=== PATIENT | male | born 1950 | race Caucasian/White ===

== ENCOUNTER 2020-09-22 13:44 | Inpatient (IN) | payer MEDICARE ==
[~2020-09-22] VITALS: Ht 167.6 cm; Wt 99.8 kg
[2020-09-22] MEDS ORDERED: metoprolol (13:47)
[2020-09-22] MEDS ORDERED: metformin (13:47)
[2020-09-22] MEDS ORDERED: DEXAMETHASONE 4MG/ML 1ML VIAL IV ONE (14:15)
[2020-09-22] MEDS ORDERED: PIPERACILLIN/TAZ 3.375G PREMIX 50 ML IV ONE (14:15)
[2020-09-22] MEDS ORDERED: VANCOMYCIN 1 G PREMIX 200 ML IV ONE (14:15)
[2020-09-22] MEDS ORDERED: DILTIAZEM HCL 5MG/ML 5ML VIAL IV ONE (14:45)
[2020-09-22] MEDS ORDERED: SODIUM CHLORIDE 0.9% 500 ML IV ONE (15:00)
[2020-09-22 15:26] LABS: BASOPHILS % 0.5 % (0.0-2.0); EOSINOPHILS % 0.3 % (0.0-5.0); HEMATOCRIT. 53.5 % (42.0-52.0); HEMOGLOBIN. 17.6 g/dL (14.0-18.0); LYMPHOCYTES % 15.5 % (20.0-50.0); MEAN CORPUSCULAR HEMOGLOBIN 29.8 pg (28.0-32.0); MEAN CORPUSCULAR VOLUME 90.3 fL (80.0-94.0); MEAN PLATELET VOLUME 9.1 fl (7.4-10.4); MONOCYTES % 4.9 % (2.0-8.0); NEUTROPHILS % 78.8 % (40.0-76.0); PLATELET 182 x1000/uL (130-400); RED BLOOD CELL COUNT 5.92 mill/uL (4.7-6.1); RED CELL DISTRIBUTION WIDTH 13.2 % (11.6-14.6)
[2020-09-22 15:31] LABS: CHLORIDE 100 mEq/L (98-107)
[2020-09-22 15:34] LABS: INR 1.2
[2020-09-22] MEDS ORDERED: NOREPINEPHRINE 8MG/250ML PMX 250 ML IV STA (15:44)
[2020-09-22] MEDS ORDERED: PROPOFOL 10MG/ML 100ML 100 ML IV ONE (15:45)
[2020-09-22] MEDS ORDERED: SUCCINYLCHOLINE CHLORIDE 200MG/10ML IV ONE (15:45)
[2020-09-22] MEDS ORDERED: ETOMIDATE 2MG/ML 10ML VIAL IV ONE (15:45)
[2020-09-22] MEDS ORDERED: SODIUM CHLORIDE 0.9% 250 ML IV ONE (15:45)
[2020-09-22] MEDS ORDERED: DILTIAZEM HCL 125 MG in DEXT 5% WATER 100 ML IV ONE (15:45)
[2020-09-22] MEDS ORDERED: NOREPINEPHRINE 8 MG in DEXT 5% WATER 242 ML IV STA (15:50)
[2020-09-22 16:38] LABS: BG BASE EXCESS -7.5 mmol/L (-2.0-2.0); BG CARBOXYHEMOGLOBIN 0.3 % (0.5-1.5); BG DEOXYHEMOGLOBIN 7.9 % (0.0-5.0); BG FRACTION INSPIRED OXYGEN 100; BG HCO3 ACT 13.8 mmol/L (22.0-26.0); BG METHEMOGLOBIN 0.4 % (0.0-1.5); BG OXYHEMOGLOBIN 91.4 % (94.0-97.0); BG PCO2 21.9 mmHg (35.0-45.0); BG PH 7.417 (7.350-7.450); BG PO2 62.7 mmHg (75.0-100.0); BG SAMPLE SITE LEFT RADIAL; BG TOTAL HEMOGLOBIN 19.8 g/dL (12.0-18.0); BG VENT MODE MASK - NRB
[2020-09-22] MEDS ORDERED: CLONIDINE 0.1MG TABLET PO PRN (18:45)
[2020-09-22] MEDS ORDERED: ACETAMINOPHEN 325MG TABLET PO PRN ×2 (18:45)
[2020-09-22] MEDS ORDERED: ALBUTEROL 6.7GM HFA INHALER ORI PRN (18:45)
[2020-09-22] MEDS ORDERED: DEXTROSE 50% WATER 50ML SYRINGE IV PRN (18:45)
[2020-09-22] MEDS ORDERED: SODIUM CHLORIDE 0.9% 1000ML BAG (SEPSIS BOLUS) IV ONE (18:45)
[2020-09-22] MEDS ORDERED: NOREPINEPHRINE 8 MG in DEXT 5% WATER 242 ML IV PRN (18:45)
[2020-09-22] MEDS ORDERED: ONDANSETRON HCL 4MG/2ML INJ IV PRN (18:45)
[2020-09-22] MEDS ORDERED: DOCUSATE SODIUM 100MG CAPSULE PO PRN (18:45)
[2020-09-22] MEDS ORDERED: NITROGLYCERIN 0.4MG TABLET SL SL PRN (18:45)
[2020-09-22] MEDS ORDERED: ZOLPIDEM TARTRATE 5MG TABLET PO PRN (18:45)
[2020-09-22] MEDS ORDERED: NA PHOS,M-B/NA PHOS,DI-BA ENEMA 118ML PR PRN (18:45)
[2020-09-22] MEDS ORDERED: AZITHROMYCIN 500 MG in DEXT 5% WATER 250 ML IV SCH (20:00)
[2020-09-22] MEDS: CEFTRIAXONE 1 G PREMIX 50 ML IV SCH (20:00)
[2020-09-22] MEDS: ENOXAPARIN 100MG/ML SYR SUBCUT SCH (20:00)
[2020-09-22] MEDS: FAMOTIDINE 20MG TABLET PO SCH (21:00)
[2020-09-22] MEDS: BLOOD SUGAR DIAGNOSTIC STRIP TEST SCH (21:00)
[2020-09-22] MEDS: ASCORBIC ACID 500 MG TABLET PO SCH (21:00)
[2020-09-22] MEDS: INSULIN LISPRO 100 UNITS/ML SUBCUT SCH (21:00)
[2020-09-22] MEDS ORDERED: AMIODARONE HCL 900 MG in DEXT 5% WATER 482 ML IV ONE ×4 (21:15)
[2020-09-22] MEDS ORDERED: AMIODARONE HCL 150 MG in DEXT 5% WATER 100 ML IV ONE (21:15)
[2020-09-22 21:34] LABS: ETHANOL BLOOD < 10 mg/dL
[2020-09-22 21:35] LABS: TOTAL IRON BINDING CAPACITY 163 ug/dL (250-450)
[2020-09-22 22:13] LABS: FOLIC ACID (FOLATE) SERUM 15.7 ng/mL (>5.38)
[2020-09-22 22:49] LABS: CREATINE KINASE MB FRACTION 2.3 ng/mL (0.5-3.6)
[2020-09-22] MEDS: INSULIN GLARGINE UD 100 UNITS/ML SYR SUBCUT SCH (22:53)
[2020-09-23 04:43] LABS: HEMOGLOBIN. 15.8 g/dL (14.0-18.0); MEAN CORPUSCULAR HEMOGLOBIN 30.6 pg (28.0-32.0); MEAN CORPUSCULAR VOLUME 89.2 fL (80.0-94.0); MEAN PLATELET VOLUME 9.6 fl (7.4-10.4); PLATELET 136 x1000/uL (130-400); RED BLOOD CELL COUNT 5.16 mill/uL (4.7-6.1); RED CELL DISTRIBUTION WIDTH 13.2 % (11.6-14.6)
[2020-09-23 04:50] LABS: CHLORIDE 104 mEq/L (98-107)
[2020-09-23 04:59] LABS: PHOSPHORUS 4.1 mg/dL (2.5-4.9)
[2020-09-23 05:00] LABS: LDL CHOLESTEROL 73 mg/dL (5-100)
[2020-09-23 05:02] LABS: CREATINE KINASE 109 IU/L (39-308); CREATINE KINASE MB FRACTION 2.3 ng/mL (0.5-3.6); HDL CHOLESTEROL 27 mg/dL (40-59)
[2020-09-23] MEDS: BLOOD SUGAR DIAGNOSTIC STRIP TEST SCH ×4 (06:15→21:52)
[2020-09-23] MEDS: INSULIN LISPRO 100 UNITS/ML SUBCUT SCH ×4 (06:31→21:53)
[2020-09-23 07:56] LABS: ATYPICAL LYMPHOCYTES 1
[2020-09-23 07:57] LABS: PLATELET ESTIMATE NORMAL
[2020-09-23 08:14] LABS: BG BASE EXCESS -5.6 mmol/L (-2.0-2.0); BG CARBOXYHEMOGLOBIN 0.4 % (0.5-1.5); BG DEOXYHEMOGLOBIN 1.5 % (0.0-5.0); BG HCO3 ACT 18.4 mmol/L (22.0-26.0); BG METHEMOGLOBIN 0.2 % (0.0-1.5); BG OXYGEN SATURATION 98.5 % (92.0-98.5); BG OXYHEMOGLOBIN 97.9 % (94.0-97.0); BG PCO2 32.3 mmHg (35.0-45.0); BG PH 7.374 (7.350-7.450); BG PO2 132.7 mmHg (75.0-100.0); BG SAMPLE SITE RIGHT BRACHIAL; BG TOTAL HEMOGLOBIN 16.2 g/dL (12.0-18.0); BG VENT MODE MASK - BIPAP
[2020-09-23] MEDS: DEXAMETHASONE 10 MG/ML VIAL IV SCH (09:00)
[2020-09-23] MEDS ORDERED: DEXAMETHASONE 10 MG/ML VIAL IV SCH (09:00)
[2020-09-23] MEDS ORDERED: ASPIRIN 325MG EC TABLET PO SCH (09:00)
[2020-09-23] MEDS: FAMOTIDINE 20MG TABLET PO SCH ×2 (09:00→21:00)
[2020-09-23] MEDS: ZINC SULFATE 220 MG ( 50 ) CAPSULE PO SCH (09:09)
[2020-09-23] MEDS: ASCORBIC ACID 500 MG TABLET PO SCH ×2 (09:09→21:00)
[2020-09-23] MEDS: ENOXAPARIN 100MG/ML SYR SUBCUT SCH ×2 (09:30→20:55)
[2020-09-23] MEDS: ALBUTEROL 6.7GM HFA INHALER ORI SCH ×4 (10:32→21:00)
[2020-09-23] MEDS: DILTIAZEM HCL 30MG TABLET PO SCH ×2 (12:30→12:53)
[2020-09-23] MEDS: ERGOCALCIFEROL 50000UNITS CAPSULE PO SCH (17:15)
[2020-09-23 18:09] LABS: CLARITY URINE TURBID (CLEAR); COLOR URINE DARK YELLOW (YELLOW); KETONES URINE TRACE (NEGATIVE); LEUKOCYTE ESTERASE URINE TRACE (NEGATIVE); NITRITE URINE POSITIVE (NEGATIVE); OCCULT BLOOD URINE TRACE (NEGATIVE); PROTEIN URINE 3+ (NEGATIVE); SPECIFIC GRAVITY URINE 1.042 (1.005-1.030)
[2020-09-23] MEDS ORDERED: LORAZEPAM 0.5MG TABLET PO PRN (19:45)
[2020-09-23] MEDS: CEFTRIAXONE 1 G PREMIX 50 ML IV SCH (20:54)
[2020-09-23] MEDS: AZITHROMYCIN 500 MG in DEXT 5% WATER 250 ML IV SCH (21:30)
[2020-09-23] MEDS: INSULIN GLARGINE UD 100 UNITS/ML SYR SUBCUT SCH (22:00)
[2020-09-24] MEDS: ALBUTEROL 6.7GM HFA INHALER ORI SCH ×2 (02:23→20:37)
[2020-09-24] MEDS: DILTIAZEM HCL 30MG TABLET PO SCH ×4 (06:23→18:00)
[2020-09-24] MEDS: BLOOD SUGAR DIAGNOSTIC STRIP TEST SCH ×3 (06:43→17:36)
[2020-09-24] MEDS: INSULIN LISPRO 100 UNITS/ML SUBCUT SCH ×3 (07:23→18:45)
[2020-09-24 08:16] LABS: BG DEOXYHEMOGLOBIN 2.8 % (0.0-5.0); BG FRACTION INSPIRED OXYGEN 80; BG HCO3 ACT 15.2 mmol/L (22.0-26.0); BG METHEMOGLOBIN 0.1 % (0.0-1.5); BG OXYGEN SATURATION 97.2 % (92.0-98.5); BG OXYHEMOGLOBIN 97.1 % (94.0-97.0); BG PCO2 26.7 mmHg (35.0-45.0); BG PH 7.374 (7.350-7.450); BG PO2 93.2 mmHg (75.0-100.0); BG SAMPLE SITE RIGHT BRACHIAL; BG VENT MODE MASK - BIPAP
[2020-09-24] MEDS: ENOXAPARIN 100MG/ML SYR SUBCUT SCH (08:49)
[2020-09-24] MEDS ORDERED: AMIODARONE HCL 200 MG TABLET PO SCH (09:00)
[2020-09-24] MEDS: DEXAMETHASONE 10 MG/ML VIAL IV SCH (09:14)
[2020-09-24] MEDS: ASCORBIC ACID 500 MG TABLET PO SCH (09:15)
[2020-09-24] MEDS: ASPIRIN 81MG EC TABLET PO SCH (09:15)
[2020-09-24] MEDS: FAMOTIDINE 20MG TABLET PO SCH (09:15)
[2020-09-24] MEDS: ZINC SULFATE 220 MG ( 50 ) CAPSULE PO SCH (09:15)
[2020-09-24] MEDS ORDERED: FUROSEMIDE 20MG/2ML VIAL IVP SCH (11:00)
[2020-09-24] MEDS: AMIODARONE HCL 200 MG TABLET PO SCH ×2 (14:49→20:00)
[2020-09-25] MEDS: ASCORBIC ACID 500 MG TABLET PO SCH ×3 (01:51→22:09)
[2020-09-25] MEDS: FAMOTIDINE 20MG TABLET PO SCH ×3 (01:52→22:09)
[2020-09-25] MEDS: CEFTRIAXONE 1 G PREMIX 50 ML IV SCH (01:55)
[2020-09-25] MEDS: BLOOD SUGAR DIAGNOSTIC STRIP TEST SCH ×5 (01:58→22:09)
[2020-09-25] MEDS: INSULIN LISPRO 100 UNITS/ML SUBCUT SCH ×5 (02:02→22:13)
[2020-09-25] MEDS: AZITHROMYCIN 500 MG in DEXT 5% WATER 250 ML IV SCH ×2 (02:14→22:11)
[2020-09-25] MEDS: DILTIAZEM HCL 30MG TABLET PO SCH ×4 (02:15→23:11)
[2020-09-25] MEDS: INSULIN GLARGINE UD 100 UNITS/ML SYR SUBCUT SCH ×2 (02:20→22:46)
[2020-09-25] MEDS: ALBUTEROL 6.7GM HFA INHALER ORI SCH ×2 (04:41→22:46)
[2020-09-25 05:38] LABS: HEMATOCRIT. 42.4 % (42.0-52.0); HEMOGLOBIN. 14.4 g/dL (14.0-18.0); MEAN CORPUSCULAR HEMOGLOBIN 30.1 pg (28.0-32.0); MEAN CORPUSCULAR VOLUME 88.3 fL (80.0-94.0); MEAN PLATELET VOLUME 9.5 fl (7.4-10.4); PLATELET 229 x1000/uL (130-400); RED CELL DISTRIBUTION WIDTH 13.4 % (11.6-14.6)
[2020-09-25 05:46] LABS: CHLORIDE 103 mEq/L (98-107)
[2020-09-25 05:54] LABS: PHOSPHORUS 6.3 mg/dL (2.5-4.9)
[2020-09-25] MEDS: DEXAMETHASONE 10 MG/ML VIAL IV SCH (08:38)
[2020-09-25] MEDS: ASPIRIN 81MG EC TABLET PO SCH (08:38)
[2020-09-25] MEDS: ENOXAPARIN 100MG/ML SYR SUBCUT SCH (08:39)
[2020-09-25] MEDS: AMIODARONE HCL 200 MG TABLET PO SCH ×3 (08:56→17:45)
[2020-09-25] MEDS: ZINC SULFATE 220 MG ( 50 ) CAPSULE PO SCH (08:56)
[2020-09-25 09:44] LABS: PLATELET ESTIMATE NORMAL
[2020-09-25 13:25] VITALS: BP_SYST 130
[2020-09-25 16:00] VITALS: BP 149/86
[2020-09-25 20:00] VITALS: BP 158/87
[2020-09-25] MEDS ORDERED: CEFTRIAXONE 1,000 MG in DEXTROSE 5% WATER 50 ML IV SCH (20:00)
[2020-09-26] VITALS: BP 151/93
[2020-09-26 04:00] VITALS: BP 115/86
[2020-09-26] MEDS: ALBUTEROL 6.7GM HFA INHALER ORI SCH ×3 (04:17→22:15)
[2020-09-26] MEDS: DILTIAZEM HCL 30MG TABLET PO SCH ×4 (05:27→22:53)
[2020-09-26] MEDS: BLOOD SUGAR DIAGNOSTIC STRIP TEST SCH ×4 (05:52→22:15)
[2020-09-26 06:26] LABS: CHLORIDE 104 mEq/L (98-107)
[2020-09-26 06:31] LABS: PHOSPHORUS 7.9 mg/dL (2.5-4.9)
[2020-09-26 08:00] VITALS: BP 138/82
[2020-09-26 08:11] LABS: HEMATOCRIT. 47.2 % (42.0-52.0); HEMOGLOBIN. 15.8 g/dL (14.0-18.0); MEAN CORPUSCULAR HEMOGLOBIN 30.5 pg (28.0-32.0); MEAN CORPUSCULAR VOLUME 91.1 fL (80.0-94.0); MEAN PLATELET VOLUME 9.3 fl (7.4-10.4); PLATELET 211 x1000/uL (130-400); RED BLOOD CELL COUNT 5.18 mill/uL (4.7-6.1); RED CELL DISTRIBUTION WIDTH 13.4 % (11.6-14.6)
[2020-09-26] MEDS: INSULIN LISPRO 100 UNITS/ML SUBCUT SCH ×4 (08:53→22:56)
[2020-09-26] MEDS: AMIODARONE HCL 200 MG TABLET PO SCH ×3 (08:54→17:26)
[2020-09-26] MEDS: ENOXAPARIN 100MG/ML SYR SUBCUT SCH (08:54)
[2020-09-26] MEDS: ASPIRIN 81MG EC TABLET PO SCH (08:54)
[2020-09-26] MEDS: DEXAMETHASONE 10 MG/ML VIAL IV SCH (08:54)
[2020-09-26] MEDS: ASCORBIC ACID 500 MG TABLET PO SCH ×2 (08:54→22:15)
[2020-09-26] MEDS: FAMOTIDINE 20MG TABLET PO SCH ×2 (08:54→22:14)
[2020-09-26] MEDS: ALBUTEROL 6.7GM HFA INHALER ORI PRN ×3 (08:58→17:16)
[2020-09-26 12:00] VITALS: BP 95/75
[2020-09-26] MEDS: ZINC SULFATE 220 MG ( 50 ) CAPSULE PO SCH (13:01)
[2020-09-26 16:00] VITALS: BP 122/85
[2020-09-26 16:02] LABS: PLATELET ESTIMATE NORMAL
[2020-09-26 20:00] VITALS: BP 118/80
[2020-09-26] MEDS: AZITHROMYCIN 500 MG in DEXT 5% WATER 250 ML IV SCH (22:15)
[2020-09-26] MEDS: INSULIN GLARGINE UD 100 UNITS/ML SYR SUBCUT SCH (22:16)
[2020-09-27] VITALS: BP 140/96
[2020-09-27] MEDS: ALBUTEROL 6.7GM HFA INHALER ORI SCH ×4 (03:53→21:00)
[2020-09-27 04:00] VITALS: BP 119/68
[2020-09-27] MEDS: BLOOD SUGAR DIAGNOSTIC STRIP TEST SCH ×4 (06:05→21:00)
[2020-09-27] MEDS: INSULIN LISPRO 100 UNITS/ML SUBCUT SCH ×4 (06:05→21:00)
[2020-09-27] MEDS: DILTIAZEM HCL 30MG TABLET PO SCH ×4 (06:06→18:00)
[2020-09-27 07:20] LABS: CHLORIDE 102 mEq/L (98-107)
[2020-09-27 07:32] LABS: HEMATOCRIT. 42.5 % (42.0-52.0); HEMOGLOBIN. 14.7 g/dL (14.0-18.0); MEAN CORPUSCULAR HEMOGLOBIN 30.3 pg (28.0-32.0); MEAN CORPUSCULAR VOLUME 87.8 fL (80.0-94.0); PLATELET 221 x1000/uL (130-400); RED BLOOD CELL COUNT 4.84 mill/uL (4.7-6.1); RED CELL DISTRIBUTION WIDTH 13.2 % (11.6-14.6)
[2020-09-27 08:00] VITALS: BP 136/83
[2020-09-27 09:06] LABS: *CREATININE RANDOM URINE 76.2 mg/dL (Not Estab.); MICROALBUMIN RANDOM URINE 232.2 ug/mL (Not Estab.)
[2020-09-27] MEDS: ASCORBIC ACID 500 MG TABLET PO SCH ×2 (09:28→21:00)
[2020-09-27] MEDS: ZINC SULFATE 220 MG ( 50 ) CAPSULE PO SCH (09:28)
[2020-09-27] MEDS: AMIODARONE HCL 200 MG TABLET PO SCH ×4 (09:28→17:12)
[2020-09-27] MEDS: FAMOTIDINE 20MG TABLET PO SCH (09:28)
[2020-09-27] MEDS: DEXAMETHASONE 10 MG/ML VIAL IV SCH (09:28)
[2020-09-27] MEDS: ENOXAPARIN 100MG/ML SYR SUBCUT SCH (09:30)
[2020-09-27] MEDS: ASPIRIN 81MG EC TABLET PO SCH (09:30)
[2020-09-27 12:00] VITALS: BP 140/77
[2020-09-27 14:54] LABS: PLATELET ESTIMATE NORMAL
[2020-09-27 16:00] VITALS: BP 126/83
[2020-09-27 16:02] LABS: HEMATOCRIT. 44.2 % (42.0-52.0); HEMOGLOBIN. 14.8 g/dL (14.0-18.0); MEAN CORPUSCULAR HEMOGLOBIN 29.9 pg (28.0-32.0); MEAN CORPUSCULAR VOLUME 89.3 fL (80.0-94.0); MEAN PLATELET VOLUME 9.3 fl (7.4-10.4); PLATELET 235 x1000/uL (130-400); RED BLOOD CELL COUNT 4.95 mill/uL (4.7-6.1); RED CELL DISTRIBUTION WIDTH 13.7 % (11.6-14.6)
[2020-09-27] MEDS: METHYLPREDNISOLONE SOD SUCC 40 MG/ML VIAL IV SCH ×2 (17:13→22:00)
[2020-09-27 20:00] VITALS: BP 157/78
[2020-09-27 21:38] LABS: PLATELET ESTIMATE NORMAL
[2020-09-27] MEDS: INSULIN GLARGINE UD 100 UNITS/ML SYR SUBCUT SCH (22:00)
[2020-09-28] VITALS: BP 110/62
[2020-09-28] MEDS: ALBUTEROL 6.7GM HFA INHALER ORI SCH ×4 (03:55→21:25)
[2020-09-28 04:00] VITALS: BP 149/88
[2020-09-28] MEDS: DILTIAZEM HCL 30MG TABLET PO SCH ×5 (06:00→21:50)
[2020-09-28] MEDS: BLOOD SUGAR DIAGNOSTIC STRIP TEST SCH ×4 (06:04→21:49)
[2020-09-28] MEDS: INSULIN LISPRO 100 UNITS/ML SUBCUT SCH ×4 (06:05→21:00)
[2020-09-28] MEDS: METHYLPREDNISOLONE SOD SUCC 40 MG/ML VIAL IV SCH ×3 (06:18→21:49)
[2020-09-28] MEDS: ZINC SULFATE 220 MG ( 50 ) CAPSULE PO SCH (09:00)
[2020-09-28] MEDS: AMIODARONE HCL 200 MG TABLET PO SCH ×3 (09:00→17:00)
[2020-09-28] MEDS: ASCORBIC ACID 500 MG TABLET PO SCH ×2 (09:00→21:49)
[2020-09-28] MEDS: FAMOTIDINE 20MG TABLET PO SCH (09:00)
[2020-09-28] MEDS: ASPIRIN 81MG EC TABLET PO SCH (09:00)
[2020-09-28] MEDS: ENOXAPARIN 100MG/ML SYR SUBCUT SCH (09:13)
[2020-09-28 10:48] LABS: CHLORIDE 103 mEq/L (98-107)
[2020-09-28 11:51] LABS: PHOSPHORUS 9.4 mg/dL (2.5-4.9)
[2020-09-28 12:00] VITALS: BP 124/91
[2020-09-28 20:00] VITALS: BP 128/81
[2020-09-28] MEDS: INSULIN GLARGINE UD 100 UNITS/ML SYR SUBCUT SCH (22:00)
[2020-09-28] MEDS: GUAIFENESIN 200MG/10ML SUGAR FREE UDC PO PRN (22:16)
[2020-09-29] VITALS: BP 130/79
[2020-09-29] MEDS: ALBUTEROL 6.7GM HFA INHALER ORI SCH ×4 (03:01→22:06)
[2020-09-29] MEDS ORDERED: IOHEXOL-350 100 ML BOTTLE ONE (03:43)
[2020-09-29 04:00] VITALS: BP 134/77
[2020-09-29] MEDS: DILTIAZEM HCL 30MG TABLET PO SCH ×2 (06:00→12:00)
[2020-09-29] MEDS: BLOOD SUGAR DIAGNOSTIC STRIP TEST SCH ×4 (06:31→21:09)
[2020-09-29] MEDS: METHYLPREDNISOLONE SOD SUCC 40 MG/ML VIAL IV SCH ×3 (06:31→21:09)
[2020-09-29] MEDS: INSULIN LISPRO 100 UNITS/ML SUBCUT SCH ×4 (07:10→22:31)
[2020-09-29 08:00] VITALS: BP 140/68
[2020-09-29] MEDS: ASCORBIC ACID 500 MG TABLET PO SCH ×2 (09:00→21:08)
[2020-09-29] MEDS: ZINC SULFATE 220 MG ( 50 ) CAPSULE PO SCH (10:00)
[2020-09-29] MEDS: FAMOTIDINE 20MG TABLET PO SCH (10:01)
[2020-09-29] MEDS: AMIODARONE HCL 200 MG TABLET PO SCH ×3 (10:01→18:20)
[2020-09-29] MEDS: ASPIRIN 81MG EC TABLET PO SCH (10:01)
[2020-09-29 12:00] VITALS: BP 99/65
[2020-09-29 16:32] LABS: HEMATOCRIT. 45.9 % (42.0-52.0); HEMOGLOBIN. 15.1 g/dL (14.0-18.0); MEAN CORPUSCULAR HEMOGLOBIN 29.6 pg (28.0-32.0); MEAN CORPUSCULAR VOLUME 89.7 fL (80.0-94.0); MEAN PLATELET VOLUME 9.5 fl (7.4-10.4); PLATELET 242 x1000/uL (130-400); RED BLOOD CELL COUNT 5.11 mill/uL (4.7-6.1); RED CELL DISTRIBUTION WIDTH 13.6 % (11.6-14.6)
[2020-09-29 17:05] LABS: CHLORIDE 104 mEq/L (98-107)
[2020-09-29 17:55] LABS: PHOSPHORUS 8.7 mg/dL (2.5-4.9)
[2020-09-29] MEDS: DILTIAZEM HCL 60MG TABLET PO SCH ×2 (18:20→23:15)
[2020-09-29 18:52] LABS: PLATELET ESTIMATE NORMAL
[2020-09-29 20:00] VITALS: BP 116/83
[2020-09-29] MEDS: INSULIN GLARGINE UD 100 UNITS/ML SYR SUBCUT SCH (23:14)
[2020-09-30] VITALS (7 sets, daily range): BP systolic 98–139; BP diastolic 65–80
[2020-09-30] MEDS: ALBUTEROL 6.7GM HFA INHALER ORI SCH ×4 (03:21→22:48)
[2020-09-30] MEDS: BLOOD SUGAR DIAGNOSTIC STRIP TEST SCH ×4 (06:12→22:48)
[2020-09-30] MEDS: DILTIAZEM HCL 60MG TABLET PO SCH ×4 (06:12→17:47)
[2020-09-30] MEDS: METHYLPREDNISOLONE SOD SUCC 40 MG/ML VIAL IV SCH ×3 (06:12→22:49)
[2020-09-30] MEDS: INSULIN LISPRO 100 UNITS/ML SUBCUT SCH ×4 (06:13→23:01)
[2020-09-30] MEDS: ASPIRIN 81MG EC TABLET PO SCH (09:55)
[2020-09-30] MEDS: FAMOTIDINE 20MG TABLET PO SCH (09:55)
[2020-09-30] MEDS: AMIODARONE HCL 200 MG TABLET PO SCH ×3 (09:55→17:47)
[2020-09-30] MEDS: ZINC SULFATE 220 MG ( 50 ) CAPSULE PO SCH (09:55)
[2020-09-30] MEDS: ASCORBIC ACID 500 MG TABLET PO SCH ×2 (09:55→22:48)
[2020-09-30 12:48] LABS: HEMATOCRIT. 46.7 % (42.0-52.0); HEMOGLOBIN. 15.4 g/dL (14.0-18.0); MEAN CORPUSCULAR HEMOGLOBIN 29.8 pg (28.0-32.0); MEAN CORPUSCULAR VOLUME 90.4 fL (80.0-94.0); MEAN PLATELET VOLUME 9.5 fl (7.4-10.4); PLATELET 217 x1000/uL (130-400); RED BLOOD CELL COUNT 5.16 mill/uL (4.7-6.1); RED CELL DISTRIBUTION WIDTH 13.8 % (11.6-14.6)
[2020-09-30 13:02] LABS: CHLORIDE 103 mEq/L (98-107)
[2020-09-30 13:25] LABS: PHOSPHORUS 10.4 mg/dL (2.5-4.9)
[2020-09-30 14:33] LABS: PLATELET ESTIMATE NORMAL
[2020-09-30] MEDS ORDERED: SODIUM POLYSTYRENE SULFONATE 15 G/60 ML BOT PO NR (15:00)
[2020-09-30] MEDS: ERGOCALCIFEROL 50000UNITS CAPSULE PO SCH (17:47)
[2020-09-30] MEDS: INSULIN GLARGINE UD 100 UNITS/ML SYR SUBCUT SCH (22:49)
[2020-10-01] MEDS: DILTIAZEM HCL 60MG TABLET PO SCH ×2 (02:11→05:11)
[2020-10-01] MEDS: ALBUTEROL 6.7GM HFA INHALER ORI SCH ×4 (02:12→20:26)
[2020-10-01 04:00] VITALS: BP 141/61
[2020-10-01] MEDS: METHYLPREDNISOLONE SOD SUCC 40 MG/ML VIAL IV SCH ×3 (05:36→22:15)
[2020-10-01] MEDS: INSULIN LISPRO 100 UNITS/ML SUBCUT SCH ×4 (06:47→21:00)
[2020-10-01] MEDS: BLOOD SUGAR DIAGNOSTIC STRIP TEST SCH ×4 (06:47→21:00)
[2020-10-01 08:00] VITALS: BP 127/81
[2020-10-01] MEDS: FAMOTIDINE 20MG TABLET PO SCH (09:11)
[2020-10-01] MEDS: ZINC SULFATE 220 MG ( 50 ) CAPSULE PO SCH (09:11)
[2020-10-01] MEDS: AMIODARONE HCL 200 MG TABLET PO SCH ×3 (09:11→17:12)
[2020-10-01] MEDS: ASPIRIN 81MG EC TABLET PO SCH (09:11)
[2020-10-01] MEDS: ASCORBIC ACID 500 MG TABLET PO SCH ×2 (09:11→22:15)
[2020-10-01 10:23] LABS: HEMATOCRIT. 47.8 % (42.0-52.0); MEAN CORPUSCULAR HEMOGLOBIN 29.7 pg (28.0-32.0); MEAN CORPUSCULAR VOLUME 88.7 fL (80.0-94.0); MEAN PLATELET VOLUME 9.8 fl (7.4-10.4); PLATELET 201 x1000/uL (130-400); RED BLOOD CELL COUNT 5.38 mill/uL (4.7-6.1); RED CELL DISTRIBUTION WIDTH 13.6 % (11.6-14.6)
[2020-10-01 10:32] LABS: PHOSPHORUS 6.4 mg/dL (2.5-4.9)
[2020-10-01 12:00] VITALS: BP 148/73
[2020-10-01] MEDS: DILTIAZEM HCL 90MG TABLET PO SCH ×2 (12:13→17:12)
[2020-10-01 14:32] LABS: PLATELET ESTIMATE NORMAL
[2020-10-01 16:00] VITALS: BP 129/75
[2020-10-01 20:00] VITALS: BP 124/88
[2020-10-01] MEDS: INSULIN GLARGINE UD 100 UNITS/ML SYR SUBCUT SCH (22:00)
[2020-10-02] VITALS: BP 120/79
[2020-10-02] MEDS: ALBUTEROL 6.7GM HFA INHALER ORI SCH ×5 (03:00→16:31)
[2020-10-02 04:00] VITALS: BP 154/95
[2020-10-02] MEDS: DILTIAZEM HCL 90MG TABLET PO SCH ×4 (06:00→17:17)
[2020-10-02] MEDS: BLOOD SUGAR DIAGNOSTIC STRIP TEST SCH ×4 (06:55→21:00)
[2020-10-02] MEDS: METHYLPREDNISOLONE SOD SUCC 40 MG/ML VIAL IV SCH ×3 (06:56→22:44)
[2020-10-02 08:00] VITALS: BP 102/51
[2020-10-02 08:05] LABS: HEMATOCRIT. 47.5 % (42.0-52.0); HEMOGLOBIN. 15.7 g/dL (14.0-18.0); MEAN CORPUSCULAR HEMOGLOBIN 29.6 pg (28.0-32.0); MEAN CORPUSCULAR VOLUME 89.3 fL (80.0-94.0); MEAN PLATELET VOLUME 10.1 fl (7.4-10.4); PLATELET 156 x1000/uL (130-400); RED BLOOD CELL COUNT 5.31 mill/uL (4.7-6.1); RED CELL DISTRIBUTION WIDTH 13.6 % (11.6-14.6)
[2020-10-02 08:42] LABS: PHOSPHORUS 9.9 mg/dL (2.5-4.9)
[2020-10-02] MEDS ORDERED: NICOTINE 7MG PATCH TD SCH (09:00)
[2020-10-02] MEDS: ZINC SULFATE 220 MG ( 50 ) CAPSULE PO SCH (09:19)
[2020-10-02] MEDS: AMIODARONE HCL 200 MG TABLET PO SCH ×2 (09:19→12:20)
[2020-10-02] MEDS: ASPIRIN 81MG EC TABLET PO SCH (09:19)
[2020-10-02] MEDS: ASCORBIC ACID 500 MG TABLET PO SCH ×2 (09:19→22:44)
[2020-10-02] MEDS: FAMOTIDINE 20MG TABLET PO SCH (09:19)
[2020-10-02] MEDS: INSULIN LISPRO 100 UNITS/ML SUBCUT SCH ×4 (09:20→22:44)
[2020-10-02 12:00] VITALS: BP 123/78
[2020-10-02] MEDS: ENOXAPARIN 100MG/ML SYR SUBCUT SCH (12:20)
[2020-10-02 15:52] LABS: PLATELET ESTIMATE NORMAL
[2020-10-02 16:00] VITALS: BP 131/83
[2020-10-02 20:00] VITALS: BP 131/74
[2020-10-02] MEDS: INSULIN GLARGINE UD 100 UNITS/ML SYR SUBCUT SCH (22:45)
[2020-10-03] VITALS: BP 113/77
[2020-10-03] MEDS: DILTIAZEM HCL 90MG TABLET PO SCH ×4 (00:19→18:11)
[2020-10-03 04:00] VITALS: BP 132/81
[2020-10-03] MEDS: METHYLPREDNISOLONE SOD SUCC 40 MG/ML VIAL IV SCH ×3 (06:27→22:13)
[2020-10-03] MEDS: BLOOD SUGAR DIAGNOSTIC STRIP TEST SCH ×4 (06:34→21:12)
[2020-10-03 08:00] VITALS: BP 121/88
[2020-10-03] MEDS: ASPIRIN 81MG EC TABLET PO SCH (08:40)
[2020-10-03] MEDS: AMIODARONE HCL 200 MG TABLET PO SCH (08:40)
[2020-10-03] MEDS: FAMOTIDINE 20MG TABLET PO SCH (08:40)
[2020-10-03] MEDS: ZINC SULFATE 220 MG ( 50 ) CAPSULE PO SCH (08:40)
[2020-10-03] MEDS: ENOXAPARIN 100MG/ML SYR SUBCUT SCH (08:40)
[2020-10-03] MEDS: ASCORBIC ACID 500 MG TABLET PO SCH ×2 (08:40→22:13)
[2020-10-03] MEDS: INSULIN LISPRO 100 UNITS/ML SUBCUT SCH ×4 (08:54→21:25)
[2020-10-03] MEDS: ALBUTEROL 6.7GM HFA INHALER ORI SCH ×3 (09:40→22:30)
[2020-10-03 12:00] VITALS: BP 144/86
[2020-10-03 16:00] VITALS: BP 123/79
[2020-10-03] MEDS: CALCIUM ACETATE 667MG CAPSULE PO SCH (18:09)
[2020-10-03 20:00] VITALS: BP 131/80
[2020-10-03] MEDS: INSULIN GLARGINE UD 100 UNITS/ML SYR SUBCUT SCH (22:15)
[2020-10-04] VITALS: BP 120/72
[2020-10-04] MEDS: DILTIAZEM HCL 90MG TABLET PO SCH ×5 (00:33→23:46)
[2020-10-04] MEDS: ALBUTEROL 6.7GM HFA INHALER ORI SCH ×4 (03:00→21:22)
[2020-10-04 04:00] VITALS: BP 108/85
[2020-10-04] MEDS: BLOOD SUGAR DIAGNOSTIC STRIP TEST SCH ×4 (06:11→21:06)
[2020-10-04] MEDS: METHYLPREDNISOLONE SOD SUCC 40 MG/ML VIAL IV SCH ×3 (06:15→21:23)
[2020-10-04] MEDS: CALCIUM ACETATE 667MG CAPSULE PO SCH ×3 (06:15→16:39)
[2020-10-04 06:53] LABS: HEMATOCRIT. 49.1 % (42.0-52.0); HEMOGLOBIN. 16.1 g/dL (14.0-18.0); MEAN CORPUSCULAR HEMOGLOBIN 29.2 pg (28.0-32.0); MEAN CORPUSCULAR VOLUME 89.2 fL (80.0-94.0); MEAN PLATELET VOLUME 10.3 fl (7.4-10.4); PLATELET 127 x1000/uL (130-400); RED BLOOD CELL COUNT 5.51 mill/uL (4.7-6.1); RED CELL DISTRIBUTION WIDTH 13.1 % (11.6-14.6)
[2020-10-04 08:00] VITALS: BP 138/58
[2020-10-04] MEDS: ASCORBIC ACID 500 MG TABLET PO SCH ×2 (08:36→21:23)
[2020-10-04] MEDS: ASPIRIN 81MG EC TABLET PO SCH (08:36)
[2020-10-04] MEDS: FAMOTIDINE 20MG TABLET PO SCH (08:36)
[2020-10-04] MEDS: INSULIN LISPRO 100 UNITS/ML SUBCUT SCH ×4 (08:36→21:23)
[2020-10-04] MEDS: ZINC SULFATE 220 MG ( 50 ) CAPSULE PO SCH (08:36)
[2020-10-04] MEDS: ENOXAPARIN 100MG/ML SYR SUBCUT SCH ×2 (08:37→09:00)
[2020-10-04] MEDS: AMIODARONE HCL 200 MG TABLET PO SCH (08:40)
[2020-10-04 12:00] VITALS: BP 154/64
[2020-10-04 14:38] LABS: PLATELET ESTIMATE SLIGHTLY DECREASED
[2020-10-04 16:00] VITALS: BP 152/74
[2020-10-04 20:00] VITALS: BP 137/73
[2020-10-04] MEDS: INSULIN GLARGINE UD 100 UNITS/ML SYR SUBCUT SCH (21:24)
[2020-10-05] VITALS: BP 139/87
[2020-10-05] MEDS: ALBUTEROL 6.7GM HFA INHALER ORI SCH ×4 (02:26→21:11)
[2020-10-05 04:00] VITALS: BP 143/80
[2020-10-05] MEDS: METHYLPREDNISOLONE SOD SUCC 40 MG/ML VIAL IV SCH ×3 (05:59→21:11)
[2020-10-05] MEDS: BLOOD SUGAR DIAGNOSTIC STRIP TEST SCH ×4 (06:00→21:01)
[2020-10-05] MEDS: DILTIAZEM HCL 90MG TABLET PO SCH ×4 (06:00→23:04)
[2020-10-05] MEDS: CALCIUM ACETATE 667MG CAPSULE PO SCH ×3 (06:27→17:33)
[2020-10-05] MEDS: ZINC SULFATE 220 MG ( 50 ) CAPSULE PO SCH (07:33)
[2020-10-05] MEDS: FAMOTIDINE 20MG TABLET PO SCH (07:33)
[2020-10-05] MEDS: ASPIRIN 81MG EC TABLET PO SCH (07:33)
[2020-10-05] MEDS: INSULIN LISPRO 100 UNITS/ML SUBCUT SCH ×4 (07:34→21:12)
[2020-10-05] MEDS: ASCORBIC ACID 500 MG TABLET PO SCH ×2 (07:34→21:12)
[2020-10-05] MEDS: AMIODARONE HCL 200 MG TABLET PO SCH (07:34)
[2020-10-05] MEDS: ENOXAPARIN 100MG/ML SYR SUBCUT SCH ×2 (07:53→10:06)
[2020-10-05 08:00] VITALS: BP 107/81
[2020-10-05] MEDS: MAGNESIUM/ALUMINUM HYDROXIDE/SIMETHICONE 30ML UDC PO PRN ×2 (08:30→17:32)
[2020-10-05] MEDS: GUAIFENESIN 200MG/10ML SUGAR FREE UDC PO PRN (08:30)
[2020-10-05 09:25] LABS: HEMATOCRIT. 48.4 % (42.0-52.0); HEMOGLOBIN. 16.2 g/dL (14.0-18.0); MEAN CORPUSCULAR VOLUME 89.7 fL (80.0-94.0); PLATELET 136 x1000/uL (130-400); RED BLOOD CELL COUNT 5.39 mill/uL (4.7-6.1); RED CELL DISTRIBUTION WIDTH 13.4 % (11.6-14.6)
[2020-10-05 09:30] LABS: CHLORIDE 98 mEq/L (98-107)
[2020-10-05 10:00] LABS: PHOSPHORUS 8.5 mg/dL (2.5-4.9)
[2020-10-05 12:00] VITALS: BP 128/78
[2020-10-05 16:00] VITALS: BP 135/69
[2020-10-05 16:56] LABS: PLATELET ESTIMATE NORMAL
[2020-10-05 20:00] VITALS: BP 156/83
[2020-10-05] MEDS: INSULIN GLARGINE UD 100 UNITS/ML SYR SUBCUT SCH (22:28)
[2020-10-06] VITALS: BP 143/87
[2020-10-06] MEDS: ALBUTEROL 6.7GM HFA INHALER ORI SCH ×4 (02:26→22:44)
[2020-10-06 04:00] VITALS: BP 140/86
[2020-10-06] MEDS: DILTIAZEM HCL 90MG TABLET PO SCH ×4 (05:54→23:18)
[2020-10-06] MEDS: METHYLPREDNISOLONE SOD SUCC 40 MG/ML VIAL IV SCH ×3 (05:54→22:44)
[2020-10-06] MEDS: BLOOD SUGAR DIAGNOSTIC STRIP TEST SCH ×4 (05:55→21:00)
[2020-10-06] MEDS: CALCIUM ACETATE 667MG CAPSULE PO SCH ×3 (06:18→16:51)
[2020-10-06 07:19] LABS: HEMATOCRIT. 47.8 % (42.0-52.0); HEMOGLOBIN. 15.9 g/dL (14.0-18.0); MEAN CORPUSCULAR HEMOGLOBIN 29.7 pg (28.0-32.0); MEAN CORPUSCULAR VOLUME 89.6 fL (80.0-94.0); MEAN PLATELET VOLUME 11.4 fl (7.4-10.4); PLATELET 124 x1000/uL (130-400); RED BLOOD CELL COUNT 5.33 mill/uL (4.7-6.1); RED CELL DISTRIBUTION WIDTH 13.1 % (11.6-14.6)
[2020-10-06 07:56] LABS: PHOSPHORUS 8.2 mg/dL (2.5-4.9)
[2020-10-06 08:00] VITALS: BP 135/79
[2020-10-06] MEDS: AMIODARONE HCL 200 MG TABLET PO SCH (08:14)
[2020-10-06] MEDS: ASPIRIN 81MG EC TABLET PO SCH (08:14)
[2020-10-06] MEDS: ZINC SULFATE 220 MG ( 50 ) CAPSULE PO SCH (08:14)
[2020-10-06] MEDS: FAMOTIDINE 20MG TABLET PO SCH (08:14)
[2020-10-06] MEDS: ASCORBIC ACID 500 MG TABLET PO SCH ×2 (08:14→22:45)
[2020-10-06] MEDS: INSULIN LISPRO 100 UNITS/ML SUBCUT SCH ×4 (08:15→22:46)
[2020-10-06] MEDS: ALBUTEROL 6.7GM HFA INHALER ORI PRN (08:16)
[2020-10-06] MEDS: ENOXAPARIN 100MG/ML SYR SUBCUT SCH (09:53)
[2020-10-06 12:00] VITALS: BP 122/63
[2020-10-06 16:00] VITALS: BP 109/79
[2020-10-06 20:00] VITALS: BP 130/67
[2020-10-06 21:57] LABS: PLATELET ESTIMATE SLIGHTLY DECREASED
[2020-10-06] MEDS: INSULIN GLARGINE UD 100 UNITS/ML SYR SUBCUT SCH (22:44)
[2020-10-07] VITALS (124 sets, daily range): BP systolic 37–166; BP diastolic 17–109
[2020-10-07] MEDS: ALBUTEROL 6.7GM HFA INHALER ORI SCH (03:00)
[2020-10-07] MEDS: DILTIAZEM HCL 90MG TABLET PO SCH ×4 (06:00→23:53)
[2020-10-07] MEDS: INSULIN LISPRO 100 UNITS/ML SUBCUT SCH ×4 (06:28→21:00)
[2020-10-07] MEDS: BLOOD SUGAR DIAGNOSTIC STRIP TEST SCH ×4 (06:28→21:00)
[2020-10-07] MEDS: METHYLPREDNISOLONE SOD SUCC 40 MG/ML VIAL IV SCH ×3 (06:32→23:51)
[2020-10-07 06:49] LABS: BG BASE EXCESS -2.3 mmol/L (-2.0-2.0); BG CARBOXYHEMOGLOBIN 0.7 % (0.5-1.5); BG DEOXYHEMOGLOBIN 21.9 % (0.0-5.0); BG FRACTION INSPIRED OXYGEN 100; BG HCO3 ACT 22.7 mmol/L (22.0-26.0); BG METHEMOGLOBIN 0.2 % (0.0-1.5); BG OXYGEN SATURATION 77.9 % (92.0-98.5); BG OXYHEMOGLOBIN 77.2 % (94.0-97.0); BG PCO2 40.3 mmHg (35.0-45.0); BG PH 7.369 (7.350-7.450); BG PO2 43.8 mmHg (75.0-100.0); BG SAMPLE SITE RIGHT BRACHIAL; BG TOTAL HEMOGLOBIN 17.4 g/dL (12.0-18.0); BG VENT MODE MASK - BIPAP
[2020-10-07] MEDS: CALCIUM ACETATE 667MG CAPSULE PO SCH ×3 (07:00→17:35)
[2020-10-07 07:58] LABS: HEMATOCRIT. 49.8 % (42.0-52.0); HEMOGLOBIN. 16.3 g/dL (14.0-18.0); MEAN CORPUSCULAR HEMOGLOBIN 29.9 pg (28.0-32.0); MEAN CORPUSCULAR VOLUME 91.7 fL (80.0-94.0); MEAN PLATELET VOLUME 11.5 fl (7.4-10.4); PLATELET 118 x1000/uL (130-400); RED BLOOD CELL COUNT 5.43 mill/uL (4.7-6.1); RED CELL DISTRIBUTION WIDTH 13.7 % (11.6-14.6)
[2020-10-07 08:05] LABS: BG BASE EXCESS -9.7 mmol/L (-2.0-2.0); BG CARBOXYHEMOGLOBIN 0.3 % (0.5-1.5); BG DEOXYHEMOGLOBIN 29.8 % (0.0-5.0); BG FRACTION INSPIRED OXYGEN 100; BG HCO3 ACT 21.9 mmol/L (22.0-26.0); BG METHEMOGLOBIN 0.2 % (0.0-1.5); BG OXYGEN SATURATION 70.1 % (92.0-98.5); BG OXYHEMOGLOBIN 69.7 % (94.0-97.0); BG PO2 48.2 mmHg (75.0-100.0); BG SAMPLE SITE RIGHT RADIAL; BG VENT MODE MASK - CPAP
[2020-10-07 08:06] LABS: CHLORIDE 106 mEq/L (98-107)
[2020-10-07] MEDS ORDERED: IPRATROPIUM/ALBUTEROL 0.5-3(2.5)MG/3ML NEB HHN PRN (08:30)
[2020-10-07] MEDS ORDERED: SODIUM BICARBONATE 8.4% 1 MEQ/ML 50ML SYR IV NR ×2 (08:30→13:00)
[2020-10-07] MEDS ORDERED: MIDAZOLAM HCL 100 MG in DEXT 5% WATER 80 ML IV PRN (08:30)
[2020-10-07] MEDS ORDERED: INSULIN REGULAR (HUMULIN R) 300UNITS/3ML VIAL IV NR (08:30)
[2020-10-07] MEDS ORDERED: DEXTROSE 50% WATER 50ML SYRINGE IV NR (08:30)
[2020-10-07 08:50] LABS: PHOSPHORUS 8.4 mg/dL (2.5-4.9)
[2020-10-07] MEDS: AMIODARONE HCL 200 MG TABLET PO SCH (09:00)
[2020-10-07] MEDS: PHENYLEPHRINE 100 MG in DEXT 5% WATER 240 ML IV PRN ×2 (09:03→14:57)
[2020-10-07] MEDS: NOREPINEPHRINE 32 MG in DEXT 5% WATER 218 ML IV PRN ×3 (09:04→23:44)
[2020-10-07] MEDS ORDERED: ALBUMIN HUMAN 25GM/100ML (25%) IV NR (09:30)
[2020-10-07] MEDS: FENTANYL CITRATE/PF 2,500 MCG in SODIUM CHLORIDE 0.9% 200 ML IV PRN ×2 (09:46→16:24)
[2020-10-07] MEDS: VASOPRESSIN 20 UNIT in SODIUM CHLORIDE 0.9% 99 ML IV PRN ×2 (10:00→18:40)
[2020-10-07] MEDS ORDERED: CALCIUM CHLORIDE 1,000 MG in DEXT 5% WATER 90 ML IV NR (10:00)
[2020-10-07 10:19] LABS: BG BASE EXCESS -19.4 mmol/L (-2.0-2.0); BG CARBOXYHEMOGLOBIN 0.3 % (0.5-1.5); BG DEOXYHEMOGLOBIN 20.8 % (0.0-5.0); BG HCO3 ACT 16.1 mmol/L (22.0-26.0); BG METHEMOGLOBIN 0.4 % (0.0-1.5); BG OXYGEN SATURATION 79.1 % (92.0-98.5); BG OXYHEMOGLOBIN 78.5 % (94.0-97.0); BG PCO2 89.4 mmHg (35.0-45.0); BG PH 6.874 (7.350-7.450); BG PO2 68.4 mmHg (75.0-100.0); BG SAMPLE SITE RIGHT RADIAL; BG VENT MODE VENT - AC
[2020-10-07] MEDS: MIDAZOLAM 100MG/100ML PREMIX IV PRN ×3 (10:30→21:25)
[2020-10-07] MEDS: ENOXAPARIN 100MG/ML SYR SUBCUT SCH (11:37)
[2020-10-07] MEDS: FAMOTIDINE 20MG TABLET PO SCH (12:01)
[2020-10-07] MEDS: ASPIRIN 81MG EC TABLET PO SCH (12:01)
[2020-10-07] MEDS: ZINC SULFATE 220 MG ( 50 ) CAPSULE PO SCH (12:01)
[2020-10-07] MEDS: ASCORBIC ACID 500 MG TABLET PO SCH ×2 (12:01→21:18)
[2020-10-07 12:47] LABS: BG BASE EXCESS -15.4 mmol/L (-2.0-2.0); BG CARBOXYHEMOGLOBIN 0.2 % (0.5-1.5); BG DEOXYHEMOGLOBIN 12.4 % (0.0-5.0); BG FRACTION INSPIRED OXYGEN 100; BG HCO3 ACT 15.8 mmol/L (22.0-26.0); BG METHEMOGLOBIN 0.3 % (0.0-1.5); BG OXYGEN SATURATION 87.5 % (92.0-98.5); BG OXYHEMOGLOBIN 87.1 % (94.0-97.0); BG PCO2 58.8 mmHg (35.0-45.0); BG PH 7.048 (7.350-7.450); BG PO2 72.4 mmHg (75.0-100.0); BG SAMPLE SITE RIGHT RADIAL; BG TOTAL HEMOGLOBIN 16.4 g/dL (12.0-18.0); BG VENT MODE VENT - AC
[2020-10-07 12:51] LABS: PLATELET ESTIMATE SLIGHTLY DECREASED
[2020-10-07] MEDS ORDERED: VANCOMYCIN 1500MG in DEXTROSE 5% WATER 250ML IV NR (15:00)
[2020-10-07] MEDS ORDERED: MEROPENEM 500 MG in SODIUM CHLORIDE 0.9% 50 ML IV SCH (15:00)
[2020-10-07] MEDS: IPRATROPIUM/ALBUTEROL 0.5-3(2.5)MG/3ML NEB HHN SCH ×2 (17:11→20:39)
[2020-10-07] MEDS: ERGOCALCIFEROL 50000UNITS CAPSULE PO SCH (17:36)
[2020-10-07] MEDS: INSULIN GLARGINE UD 100 UNITS/ML SYR SUBCUT SCH (22:00)
[2020-10-08] VITALS (7 sets, daily range): BP systolic 105–119; BP diastolic 58–77
[2020-10-08] MEDS: FENTANYL CITRATE/PF 2,500 MCG in SODIUM CHLORIDE 0.9% 200 ML IV PRN (00:45)
[2020-10-08] MEDS ORDERED: BLOOD SUGAR DIAGNOSTIC STRIP TEST SCH (06:00)
== END 2020-10-08 09:00 | disposition expired | DRG 871 ==
LOC: ER 13:44 → MICUSO 17:44 → SUPCPDRO 18:50 → 7EST 09-25 10:04 → MICUSO 10-07 05:03
PROVIDERS: ADMIT Internal Medicine; ATTEND Internal Medicine
PROC: 5A09557 Assistance with Respiratory Ventilation, Greater than 96 Consecutive Hours, Continuous Positive Airway Pressure (ICD-10-PCS; 2020-09-22)
PROC: 5A1D70Z Performance of Urinary Filtration, Intermittent, Less than 6 Hours Per Day (ICD-10-PCS; 2020-09-22)
PROC: 5A1D70Z Performance of Urinary Filtration, Intermittent, Less than 6 Hours Per Day (ICD-10-PCS; 2020-09-22)
PROC: 5A1D70Z Performance of Urinary Filtration, Intermittent, Less than 6 Hours Per Day (ICD-10-PCS; 2020-09-22)
PROC: 5A1D70Z Performance of Urinary Filtration, Intermittent, Less than 6 Hours Per Day (ICD-10-PCS; 2020-09-22)
PROC: 5A1D70Z Performance of Urinary Filtration, Intermittent, Less than 6 Hours Per Day (ICD-10-PCS; 2020-09-22)
PROC: 5A1D70Z Performance of Urinary Filtration, Intermittent, Less than 6 Hours Per Day (ICD-10-PCS; 2020-09-22)
PROC: 5A1D70Z Performance of Urinary Filtration, Intermittent, Less than 6 Hours Per Day (ICD-10-PCS; 2020-09-22)
PROC: 02HV33Z Insertion of Infusion Device into Superior Vena Cava, Percutaneous Approach (ICD-10-PCS; 2020-09-26)
PROC: B548ZZA Ultrasonography of Superior Vena Cava, Guidance (ICD-10-PCS; 2020-09-26)
PROC: 5A1935Z Respiratory Ventilation, Less than 24 Consecutive Hours (ICD-10-PCS; principal; 2020-10-07)
PROC: 0BH17EZ Insertion of Endotracheal Airway into Trachea, Via Natural or Artificial Opening (ICD-10-PCS; 2020-10-07)
PROC: 5A12012 Performance of Cardiac Output, Single, Manual (ICD-10-PCS; 2020-10-08)
DX: A41.89 Other specified sepsis (principal); U07.1 COVID-19; J96.01 Acute respiratory failure with hypoxia; R65.21 Severe sepsis with septic shock; J12.82 Pneumonia due to coronavirus disease 2019; E43 Unspecified severe protein-calorie malnutrition; N17.0 Acute kidney failure with tubular necrosis; J96.02 Acute respiratory failure with hypercapnia; G92 Toxic encephalopathy; E87.1 Hypo-osmolality and hyponatremia; R17 Unspecified jaundice; I47.2 Ventricular tachycardia; E11.9 Type 2 diabetes mellitus without complications; E66.9 Obesity, unspecified; E78.5 Hyperlipidemia, unspecified; F10.21 Alcohol dependence, in remission; I48.91 Unspecified atrial fibrillation; F17.210 Nicotine dependence, cigarettes, uncomplicated; E83.39 Other disorders of phosphorus metabolism; I10 Essential (primary) hypertension; E87.5 Hyperkalemia; I46.9 Cardiac arrest, cause unspecified; R74.01 Elevation of levels of liver transaminase levels; I27.20 Pulmonary hypertension, unspecified; Z66 Do not resuscitate; B97.89 Other viral agents as the cause of diseases classified elsewhere; Z79.4 Long term (current) use of insulin; Z99.2 Dependence on renal dialysis; Z68.35 Body mass index [BMI] 35.0-35.9, adult; Z79.899 Other long term (current) drug therapy; B96.5 Pseudomonas (aeruginosa) (mallei) (pseudomallei) as the cause of diseases classified elsewhere
CPT/HCPCS: 36415; 36600; 71045; 71275; 76770; 76937; 80048; 80053; 80061; 80320; 81003; 82043; 82375; 82550; 82553; 82570; 82607; 82728; 82746; 82805; 82962; 83036; 83540; 83550; 83605; 83615; 83735; 83880; 83935; 84100; 84145; 84300; 84443; 84484; 85025; 85379; 86140; 87077; 87186; 93005; 93970; 94003; 94640; 94660; 99291; C1752; C1893; J0282; J0456; J0696; J1100; J1650; J1815; J1940; J2185; J2250; J2370; J2543; J2920; J3010; J3370; J3490; J7030; J7040; J7050; J7060; P9047; Q9967; U0003; A4315; G0480